=== PATIENT | male | born 1970 | race Caucasian/White ===

== ENCOUNTER 2017-09-21 14:08 | Inpatient (IN) | payer BC ==
[~2017-09-21] VITALS: Ht 188 cm; Wt 101.8 kg
[2017-09-21] VITALS (9 sets, daily range): BP systolic 138–163; BP diastolic 84–91; PULSE 81–98; TEMP 36–36.9; O2SAT 95–98; Ht 188 cm; Wt 101.8 kg
--- NOTE | 2017-09-21 14:50 | DIAGNOSTIC IMAGING REPORT ---
SINGLE VIEW CHEST CLINICAL HISTORY: Atypical chest pain. FINDINGS: 2 AP, portable, upright chest radiographs are obtained. No prior studies are available for comparison at the time of dictation. The examination is degraded by portable technique and patient rotation. The cardiomediastinal silhouette is unremarkable. The lungs and pleural spaces are clear. No pneumothorax is seen. The bony thorax is grossly intact. IMPRESSION: No active disease in the chest. Electronically signed by: Blake Lai M.D. 09/21/2017 2:49 PM Dictated Date/Time: 09/21/2017 2:48 PM
[2017-09-21 15:01] LABS: BASO % 0.3 %; BASO ABS # 0.03 K/uL (0-0.2); EOS % 2.1 %; EOS ABS # 0.24 K/uL (0-0.5); HEMATOCRIT 41.1 % (42-52); HEMOGLOBIN 14.1 g/dL (14.0-18.0); IG# 0.04 K/uL (0.00-0.02); LYMPH % 16.1 %; LYMPH ABS # 1.83 K/uL (1.2-3.4); MEAN CELL VOLUME 88.2 fL (80-100); MEAN CORPUSCULAR HEMOGLOBIN 30.3 pg (25-34); MEAN CORPUSCULAR HGB CONC 34.3 g/dl (32-36); MEAN PLATELET VOLUME 9.1 fL (7.4-10.4); MONO % 8.5 %; MONO ABS # 0.96 K/uL (0.11-0.59); NEUT % 72.6 %; NEUT ABS # 8.25 K/uL (1.4-6.5); PLATELET COUNT 418 K/uL (130-400); RED CELL DISTRIBUTION WIDTH CV 12.3 % (11.5-14.5); RED CELL DISTRIBUTION WIDTH SD 39.1 fL (36.4-46.3); WHITE BLOOD COUNT 11.35 K/uL (4.8-10.8)
[2017-09-21] MEDS ORDERED: ATOR-26 PO (15:11)
[2017-09-21] MEDS ORDERED: METO25TA56 PO (15:11)
[2017-09-21] MEDS ORDERED: ASPI81TA28 PO (15:11)
[2017-09-21] MEDS ORDERED: PRLSR20 PO (15:11)
[2017-09-21 15:23] LABS: CALCIUM 8.9 mg/dl (8.5-10.1); CREATININE 0.89 mg/dl (0.60-1.40); POTASSIUM 3.8 mmol/L (3.5-5.1)
[2017-09-21 15:26] LABS: PTT PATIENT 28.3 SECONDS (21.0-31.0)
[2017-09-21] MEDS ORDERED: NiCARDipine HCL INJ 2.5 MG/ML 10 ML AMP ONE (16:30)
[2017-09-21] MEDS ORDERED: HEPARIN SOD (PORCINE) 1000 UNIT/ML 10 ML VIAL ONE (16:31)
[2017-09-21] MEDS ORDERED: NITROGLYCERIN/D5W 100MCG/ML 20ML SYR ONE (16:31)
[2017-09-21] MEDS ORDERED: MIDAZOLAM HCL 1 MG/ML 2ML VIAL ONE ×3 (16:31→17:21)
--- NOTE | 2017-09-21 16:31 | CARDIOLOGY CONSULTATION ---
DATE OF CONSULTATION: 09/21/2017 REFERRING PHYSICIAN: Dr. Ashutosh Layton. REASON FOR CONSULTATION: Angina and abnormal stress testing. HISTORY OF PRESENT ILLNESS: Mr. Beth is a 47-year-old gentleman, presented to the [facility] for an outpatient exercise stress echocardiography. After about 4 minutes, the patient developed significant anginal symptoms with associated 3-[address] depression. His echocardiographic images demonstrated lateral ischemia. His chest pain persisted several minutes into recovery and he received sublingual nitroglycerin. He was brought to the Emergency Department for further evaluation. His EKG has returned to baseline. No significant ST depressions or chest discomfort at this time. No dysrhythmias on telemetry. Reports significant family history listed below. Risk factors include hypertension and dyslipidemia. His was present for interview. The patient denies orthopnea, PND, or lower extremity edema. Reports progressive anginal symptoms, which have been present since the summer. Most recently, the pattern has accelerated, now occurring with minimal activity. He is not able to complete his workout at the gym. REVIEW OF SYSTEMS: The pertinent positives noted above. A comprehensive 10-system review is otherwise negative. PAST MEDICAL HISTORY: 1. Dyslipidemia. 2. Type 2 non-STEMI in the setting of GI bleed/anemia. 3. Upper GI bleed secondary to H. pylori infection and peptic ulcer disease. PAST SURGICAL HISTORY: EGD and appendectomy. SOCIAL HISTORY: Occasional alcohol use. 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 He has smoked cigars occasionally. No cigarette use. He is and lives with his family. He has 2 adult daughters. FAMILY HISTORY: One brother at age 40 with myocardial infarction. Two other brothers with myocardial infarction and stenting in their 40s. Mother with coronary artery disease in her 60s. ALLERGIES: No known drug allergies. OUTPATIENT MEDICATIONS: 1. Omeprazole 20 mg twice daily. 2. Atorvastatin 80 mg daily. 3. Pyridium 3 times daily as needed for pain. 4. Aspirin 81 mg daily. 5. Metoprolol tartrate 25 mg twice daily. LABORATORY DATA: INR is 1.0. Sodium 136, potassium 3.8, chloride 105, CO2 is 27, BUN is 14, and creatinine 0.89. White blood cell count 11.35, hemoglobin is 14.1, and platelet count is 418. Chest x-ray on admission: No active disease in the chest. PHYSICAL EXAMINATION: VITAL SIGNS: Temperature is 36.9 degrees centigrade, pulse 88 beats per minute and regular, respiratory rate is 20 breaths per minute, blood pressure is 173/89, and SaO2 is 98% on room air. GENERAL: NAD, awake, alert and oriented x3. HEENT: Mucous membranes moist. No scleral icterus. Conjunctivae pink. NECK: Supple without JVD or HJR. No carotid bruit. HEART: Regular with a normal S1 and S2. There is no murmur, rub, or gallop. LUNGS: Clear without rales, rhonchi or wheeze. ABDOMEN: Soft and nontender. No rebound or guarding. Normal bowel sounds. EXTREMITIES: Warm and dry. There is no clubbing, cyanosis, or edema. There is a normal Barbeau test in the right upper extremity. His right femoral pulse is palpable. His posterior tibial and dorsalis pedis pulses are normal bilaterally. NEUROLOGIC: Demonstrates no focal deficit. FINAL IMPRESSION: 1. Unstable angina with abnormal exercise stress echocardiography, suggestive of lateral ischemia at low workload. 2. Significant family history of premature coronary artery disease as detailed above. 3. Dyslipidemia. 4. Hypertension -- BP elevated in the ED, likely situational. 5. History of peptic ulcer disease, H. pylori infection status post treatment without recurrence over the past 2 years. 6. Occasional tobacco use. PLAN AND RECOMMENDATIONS: Results of exercise stress echocardiography were discussed with the patient and his . Due to the accelerated nature of his symptoms representing crescendo angina, I have recommended cardiac catheterization with percutaneous intervention if indicated. The risks, benefits and alternatives of the procedure were discussed in depth with the patient. He is agreeable with the procedure at [facility] with percutaneous intervention if indicated. He will continue aspirin, statin, and beta bentley therapy at this time. We will consider adding ANGELICA inhibitor if blood pressure will tolerate prior to discharge. Further recommendations pending result of catheterization.
[2017-09-21] MEDS ORDERED: FENTANYL CITRATE INJ 50 MCG/1 ML 2 ML VIAL ONE ×2 (16:32→17:21)
[2017-09-21] MEDS ORDERED: ACETAMINOPHEN 325 MG TAB PO PRN (16:45)
[2017-09-21] MEDS ORDERED: ONDANSETRON INJ 2 MG/ML 2 ML VIAL IV PRN (16:45)
[2017-09-21] MEDS ORDERED: MAGNESIUM HYDROXIDE SUSP 30 ML UDC PO PRN (16:45)
[2017-09-21] MEDS ORDERED: ALUMINUM/MAGNESIUM/SIMETH (MAALOX MAX) 30 ML UDC PO PRN (16:45)
--- NOTE | 2017-09-21 16:46 | History and Physical ---
History & Physical Date & Time of Service: Sep 21, 2017 at 16:41 Chief Complaint: Chest Pain Primary Care Physician: No Doctor, Assigned History of Present Illness Source: patient, family, clinic records This is a 47 year old male with a PMH of gastric ulcer bleeding s/p multiple transfusions and endoclip x2, hx. of NSTEMI secondary to GI bleeding/anemia - presents for abnormal stress echo. Had chest pain with exertion; went for a stress echo as an outpatient. Found to have a positive test with chest pain and some T wave changes. Currently doing fine with no symptoms at rest. Had an NSTEMI in 2014 because of anemia and was placed on aspirin, metoprolol, statin at that time which he continues to take. Past Medical/Surgical History Medical Problems: (1) GI bleed Status: Resolved (2) Hypertension Status: Chronic (3) NSTEMI (non-ST elevated myocardial infarction) Status: Resolved Family History Heart disease Social History Smoking Status: Former Smoker Allergies Coded Allergies: No Known Allergies (Unverified , 09/21/17) Home Medications Scheduled Aspirin (Aspirin Ec), 81 MG PO DAILY Atorvastatin (Lipitor), 80 MG PO DAILY Metoprolol Tartrate (Lopressor) (Lopressor), 25 MG PO BID Omeprazole (Prilosec), 2 CAP PO BID Review of Systems Constitutional: No fever, No chills Respiratory: No cough, No sputum, No wheezing, No shortness of breath, No dyspnea on exertion, No dyspnea at rest, No hemoptysis Cardiovascular: + chest pain Abdomen: No pain, No nausea, No vomiting, No diarrhea, No constipation Musculoskeletal: No joint pain, No muscle pain Genitourinary - Male: No hematuria, No dysuria, No urinary frequency, No urinary urgency Neurologic: No numbness/tingling, No vertigo, No balance problems Psychiatric: No depression symptoms, No anxiety, No insomnia Endocrine: No fatigue Hematologic / Lymphatic: No abnormal bleeding/bruising Integumentary: No rash Allergic / Immunologic: No environmental allergies, No seasonal allergies Physical Exam Vital Signs Date Time Temp Pulse Resp B/P (MAP) Pulse Ox O2 Delivery O2 Flow Rate FiO2 09/21/17 16:17 90 20 167/92 97 09/21/17 14:23 98 Room Air 09/21/17 14:23 36.9 88 20 173/89 99 Room Air 09/21/17 14:19 78 General Appearance: no apparent distress Head: normocephalic, atraumatic Eyes: normal inspection ENT: hearing grossly normal Neck: supple Respiratory/Chest: chest non-tender, lungs clear, normal breath sounds, no respiratory distress, no accessory muscle use Cardiovascular: regular rate, rhythm, no edema, no gallop, no JVD, no murmur, normal peripheral pulses Abdomen/GI: normal bowel sounds, non tender, soft Back: normal inspection, no muscle spasm Extremities/Musculoskelatal: normal capillary refill, no pedal edema Neurologic/Psych: hose stripper II-XII nml as tested, no motor/sensory deficits, alert, normal mood/affect, oriented x 3 Skin: normal color Lymphatic: no adenopathy Diagnostics Laboratory Results Results Past 24 Hours Test 09/21/17 14:20 09/21/17 15:09 Range/Units White Blood Count 11.35 4.8-10.8 K/uL Red Blood Count 4.66 4.7-6.1 M/uL Hemoglobin 14.1 14.0-18.0 g/dL Hematocrit 41.1 42-52 % Mean Corpuscular Volume 88.2 80-100 fL Mean Corpuscular Hemoglobin 30.3 25-34 pg Mean Corpuscular Hemoglobin Concent 34.3 32-36 g/dl Platelet Count 418 130-400 K/uL Mean Platelet Volume 9.1 7.4-10.4 fL Neutrophils (%) (Auto) 72.6 % Lymphocytes (%) (Auto) 16.1 % Monocytes (%) (Auto) 8.5 % Eosinophils (%) (Auto) 2.1 % Basophils (%) (Auto) 0.3 % Neutrophils # (Auto) 8.25 1.4-6.5 K/uL Lymphocytes # (Auto) 1.83 1.2-3.4 K/uL Monocytes # (Auto) 0.96 0.11-0.59 K/uL Eosinophils # (Auto) 0.24 0-0.5 K/uL Basophils # (Auto) 0.03 0-0.2 K/uL RDW Standard Deviation 39.1 36.4-46.3 fL RDW Coefficient of Variation 12.3 11.5-14.5 % Immature Granulocyte % (Auto) 0.4 % Immature Granulocyte # (Auto) 0.04 0.00-0.02 K/uL Prothrombin Time 10.6 9.0-12.0 SECONDS Prothromb Time International Ratio 1.0 0.9-1.1 Activated Partial Thromboplast Time 28.3 21.0-31.0 SECONDS Partial Thromboplastin Ratio 1.1 Sodium Level 136 136-145 mmol/L Potassium Level 3.8 3.5-5.1 mmol/L Chloride Level 105 98-107 mmol/L Carbon Dioxide Level 27 21-32 mmol/L Anion Gap 4.0 3-11 mmol/L Blood Urea Nitrogen 14 7-18 mg/dl Creatinine 0.89 0.60-1.40 mg/dl Est Creatinine Clear Calc Drug Dose 119.3 ml/min Estimated GFR () 118.0 Estimated GFR (Non- 101.8 BUN/Creatinine Ratio 15.4 10-20 Random Glucose 98 70-99 mg/dl Calcium Level 8.9 8.5-10.1 mg/dl Bedside Troponin I < 0.030 0-0.045 ng/ml Diagnostic Radiology SINGLE VIEW CHEST CLINICAL HISTORY: Atypical chest pain. FINDINGS: 2 AP, portable, upright chest radiographs are obtained. No prior studies are available for comparison at the time of dictation. The examination is degraded by portable technique and patient rotation. The cardiomediastinal silhouette is unremarkable. The lungs and pleural spaces are clear. No pneumothorax is seen. The bony thorax is grossly intact. IMPRESSION: No active disease in the chest. EKG Normal sinus rhythm Normal ECG Normal EKG Impression Assessment and Plan This is a 47 year old male with a PMH of gastric ulcer bleeding s/p multiple transfusions and endoclip x2, hx. of NSTEMI secondary to GI bleeding/anemia - presents for abnormal stress echo. Abnormal Stress Test Hx. of NSTEMI plan for a cardiac cath appreciate cardiology input for now, continue aspirin, b-bentley, statin resting EKG with no ST-T wave changes no symptoms at rest Hx. of Gastric Ulcer Bleeding Hgb is stable no bleeding noted by patient continue Protonix DVT ppx Lovenox FULL CODE VTE Prophylaxis VTE Risk Assessment Done? Y/N: Yes Risk Level: Moderate
--- NOTE | 2017-09-21 17:23 | Pre Sedation Assessment ---
Pre Sedation Assessment General Date of Sedation: Sep 21, 2017. Vital Signs Past 12 Hours Date Time Temp Pulse Resp B/P (MAP) Pulse Ox O2 Delivery O2 Flow Rate FiO2 09/21/17 14:23 98 Room Air 09/21/17 14:23 36.9 88 20 173/89 99 Room Air 09/21/17 14:19 78 Review Cardiovascular: regular rate, rhythm, no edema, no gallop Lungs: chest non-tender, lungs clear, normal breath sounds Pre-Sedation Airway Assessment Smoking Status: Former Smoker Hx of Sleep Apnea: No Short Thick Neck: No Thyro-mental Distance: > 3 Finger Breadths Oral Cavity: WNL Mallampati Classification: Class I ASA Classification: Class I NPO Status Date of Last Intake of Fluids: Sep 21, 2017 Time of Last Intake of Fluids: 0800 Date of Last Intake of Solids: Sep 20, 2017 Time of Last Intake of Solids: 2000 Procedure Planning Contraindications for Sedation: None Current Medications Reviewed: Yes Notes The planned sedation has been discussed with the patient. Informed Consent was obtained. I have identified the patient, determined the appropriateness of sedation and have assessed the patient immediately prior to the procedure. All medicine(s) and interventions are by my order.
--- NOTE | 2017-09-21 17:36 | EMERGENCY ROOM VISIT NOTE ---
History Report prepared by Mirzaibdeanne: Elin Blackwell Under the Supervision of: Dr. Cornel Vizcaino M.D. First contact with patient: 14:29 Chief Complaint: CHEST PAIN Stated Complaint: CHEST PAIN Nursing Triage Summary: pt brought ALS from [facility] for chest pain during stress test, pt reports exertional chest pain x 1 month. Pain relieved after 1 nitro tablet and 4 baby aspirin given at [facility], pt denies pain for EMS or at present. Ischemic changes reported on EKG during stress test, back to NSR at this time. Pt has hx of NSTEMI and GI bleed in 2015. History of Present Illness The patient is a 47 year old male who presents to the Emergency Room with complaints of an episode of chest pain occurring an hour ago at 1 PM. The patient was having a stress test and he started to have chest pain and they saw some changes on his EKG. He states when he had the chest pain is was sharp, but he denies having any sweating during the episode. He is unsure if he had shortness of breath. The patient was given nitroglycerin and aspirin and it went away. Presently, the patient denies any chest pain. He states he has had chest pain when he exercised over the past month. Even climbing up a hill would make him develop chest pain. The patient has a history of a GI bleed and NSTEMI in 2015. He also has a history of hypertension. The patient reports his brother at the age of 40 from heart disease. He notes having flu like symptoms over Adelita but he denies any more recent sickness. Source of History: patient Onset: an hour ago Position: chest Symptom Intensity: moderate Quality: sharp Timing: other (episode) Modifying Factors (Relieving): other (Nitroglycerin) Associated Symptoms: + chest pain, No diaphoresis Review of Systems See HPI for pertinent positives & negatives. A total of 10 systems reviewed and were otherwise negative. Past Medical & Surgical Medical Problems: (1) Abnormal stress echo (2) GI bleed (3) Hypertension (4) NSTEMI (non-ST elevated myocardial infarction) Family History Heart disease Social History Smoking Status: Former Smoker Marital Status: Housing Status: lives with significant other Occupation Status: employed Current/Historical Medications Scheduled Aspirin (Aspirin Ec), 81 MG PO DAILY Atorvastatin (Lipitor), 80 MG PO DAILY Metoprolol Tartrate (Lopressor) (Lopressor), 25 MG PO BID Omeprazole (Prilosec), 2 CAP PO BID Allergies Coded Allergies: No Known Allergies (Unverified , 09/21/17) Physical Exam Vital Signs Date Time Temp Pulse Resp B/P (MAP) Pulse Ox O2 Delivery O2 Flow Rate FiO2 09/21/17 16:17 90 20 167/92 97 09/21/17 14:23 98 Room Air 09/21/17 14:23 36.9 88 20 173/89 99 Room Air 09/21/17 14:19 78 Physical Exam Constitutional: Vital signs reviewed. Eyes: Pupils are equal round reactive to light. Conjunctiva are noninjected. ENT: Pharynx is clear without erythema or exudate. Mucous membranes are moist. Neck supple without meningeal signs. Respiratory: Clear to auscultation bilaterally. Breath sounds are equal bilaterally. Cardiovascular: Regular rate and rhythm. No rubs or gallops. GI: Soft, nondistended and nontender. Bowel sounds are present. Musculoskeletal: No peripheral edema. No lower extremity tenderness. Integumentary: No cyanosis. Neurological: The patient is awake and alert. No focal deficits. Psychiatric: Normal affect. Medical Decision & Procedures ER Provider Diagnostic Interpretation: Radiology results as stated below per my review and the radiologist's interpretation: SINGLE VIEW CHEST FINDINGS: 2 AP, portable, upright chest radiographs are obtained. No prior studies are available for comparison at the time of dictation. The examination is degraded by portable technique and patient rotation. The cardiomediastinal silhouette is unremarkable. The lungs and pleural spaces are clear. No pneumothorax is seen. The bony thorax is grossly intact. IMPRESSION: No active disease in the chest. Electronically signed by: Blake Lai M.D. Laboratory Results 09/21/17 14:20 Red Blood Count 4.66, Mean Corpuscular Volume 88.2, Mean Corpuscular Hemoglobin 30.3, Mean Corpuscular Hemoglobin Concent 34.3, Mean Platelet Volume 9.1, Neutrophils (%) (Auto) 72.6, Lymphocytes (%) (Auto) 16.1, Monocytes (%) (Auto) 8.5, Eosinophils (%) (Auto) 2.1, Basophils (%) (Auto) 0.3, Neutrophils # (Auto) 8.25, Lymphocytes # (Auto) 1.83, Monocytes # (Auto) 0.96, Eosinophils # (Auto) 0.24, Basophils # (Auto) 0.03 09/21/17 14:20 Test 09/21/17 14:20 09/21/17 15:09 White Blood Count 11.35 K/uL (4.8-10.8) Red Blood Count 4.66 M/uL (4.7-6.1) Hemoglobin 14.1 g/dL (14.0-18.0) Hematocrit 41.1 % (42-52) Mean Corpuscular Volume 88.2 fL (80-100) Mean Corpuscular Hemoglobin 30.3 pg (25-34) Mean Corpuscular Hemoglobin Concent 34.3 g/dl (32-36) Platelet Count 418 K/uL (130-400) Mean Platelet Volume 9.1 fL (7.4-10.4) Neutrophils (%) (Auto) 72.6 % Lymphocytes (%) (Auto) 16.1 % Monocytes (%) (Auto) 8.5 % Eosinophils (%) (Auto) 2.1 % Basophils (%) (Auto) 0.3 % Neutrophils # (Auto) 8.25 K/uL (1.4-6.5) Lymphocytes # (Auto) 1.83 K/uL (1.2-3.4) Monocytes # (Auto) 0.96 K/uL (0.11-0.59) Eosinophils # (Auto) 0.24 K/uL (0-0.5) Basophils # (Auto) 0.03 K/uL (0-0.2) RDW Standard Deviation 39.1 fL (36.4-46.3) RDW Coefficient of Variation 12.3 % (11.5-14.5) Immature Granulocyte % (Auto) 0.4 % Immature Granulocyte # (Auto) 0.04 K/uL (0.00-0.02) Prothrombin Time 10.6 SECONDS (9.0-12.0) Prothromb Time International Ratio 1.0 (0.9-1.1) Activated Partial Thromboplast Time 28.3 SECONDS (21.0-31.0) Partial Thromboplastin Ratio 1.1 Anion Gap 4.0 mmol/L (3-11) Est Creatinine Clear Calc Drug Dose 119.3 ml/min Estimated GFR () 118.0 Estimated GFR (Non- 101.8 BUN/Creatinine Ratio 15.4 (10-20) Calcium Level 8.9 mg/dl (8.5-10.1) Bedside Troponin I < 0.030 ng/ml (0-0.045) Laboratory results as reviewed by me. ECG Indication: chest pain Rate (beats per minute): 83 Rhythm: normal sinus Findings: no acute ischemic change, no ectopy ED Course 1432: The patient was evaluated in room C6. A complete history and physical exam was performed. 1525: I spoke with Dr. Lay-Cardiology. We discussed the patient and his results. He will come evaluate the patient. 1528: I updated the patient on his test results. Dr. Tran is in the room with the patient. 1533: I spoke with Dr. Layton of [facility]. We discussed the patient and his results. The patient will be further evaluated by him. Medical Decision This is a 47-year-old male who presents with chest pain. Differential diagnosis includes FL, unstable angina, pleurisy, costochondritis, GERD. I did perform a limited focused review of portions of the patient's old chart on the electronic medical record. The patient has had no recent pertinent visits to this hospital. Reviewed EKG from stress test: it has ST elevation in aVR and depression in v3- v6 and inferior leads I did evaluate the patient as noted above. He is presenting with exertional chest pain for the past month. He had a stress test today in which she develop chest pain and had significant EKG changes during this episode of chest pain. This chest pain was relieved with nitroglycerin. He was given aspirin prior to arrival. The patient was placed on a continuous patient monitor. I did order and personally review the patient's 12-lead EKG and chest x-ray as described above. I did order and review the patient's blood work as noted in the electronic medical record. Troponin is negative. I did reevaluate the patient. He is not having any chest pain at this time. I did discuss case with Dr. Lay of cardiology. He did assess the patient here and is planning on taking him to the catheterization lab this afternoon. I did discuss case with the hospitalist. Medication Reconcilliation Current Medication List: was personally reviewed by me Blood Pressure Screening Patient's blood pressure: Elevated blood pressure Blood pressure disposition: Referred to PCP Consults Time Called: 152 Consulting Physician: Dr. Lay-Cardiology Returned Call: [address] SchneiderCardiology. We discussed the patient and his results. He will come evaluate the patient. Additional Consults: Time Called: 1528 Consulted Physician: Dr. Santana Returned Call: [phone] Additional Comments: I spoke with Dr. Layton of [facility]. We discussed the patient and his results. The patient will be further evaluated by him. Impression Primary Impression: Acute coronary syndrome Scribe Attestation The scribe's documentation has been prepared under my direct and personally reviewed by me in its entirety. I confirm that the note above accurately reflects all work, treatment, procedures, and medical decision making performed by me. Departure Information Dispostion Being Evaluated By Hospitalist Patient Instructions My [facility]
--- NOTE | 2017-09-21 18:00 | Cardiac Catheterization ---
Procedure Note Procedure Date Sep 21, 2017. Pre-Procedure Diagnosis Angina, Positive Stress Test AUC Score 8 Post-Procedure Diagnosis Severe CAD Procedure(s) Performed Coronary Angiography, Left Heart Cath Box Nailer Dr. 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 90% proximal RCA Hemodynamics Rest Ao: 120/70/92 Final Ao: 140/74/103 LV: 143/-4/9 Recommendations PCI without planned CABG Specimens None Radiation Exposure (mGy) 1434 Contrast (mls) 50 Anesthesia Moderate sedation. Start 1650. End 1713. Procedural Complication(s) None Disposition Patient remained in label maker for PCI to diagonal ACC Data Cardiac Status Clinical evaluation leading to the procedure CAD Presntation: Unstable angina, Positive Stress Test Anginal Classification: CCS III Heart Failure: No Cardiogenic Shock w/in 24Hrs: No Cardiac Arrest w/in 24Hrs: No Imaging studies past 6 months: No Stress studies past 6 months: Yes Stress Echocardiogram: Yes - Positive, Risk/Extent of Ischemia (High) Coronary Anatomy Dominant: Right Left Main (% Stenosis): Ostial (30% taper), Distal (20-30%) LAD (% Stenosis): Mid (40% at origin of diagonal branch vessel), Distal (20%) D1 (% Stenosis): Proximal (99%) Circumflex (% Stenosis): Ostial (30%), Proximal (50% proximal to origin of OM1) , Mid OM1 (% Stenosis): Proximal (10%), Mid, Distal (10%) RCA (% Stenosis): Proximal (90%), Mid (30%) R PDA (% Stenosis): Proximal (30% diffuse), Mid (40% ), Distal (30% diffuse) R PL1 (% Stenosis): Normal R PL2 (% Stenosis): Normal Diagnostic Status: Urgent Closure Device Percutaneous Entry Location: Radial Closure Device: Radial Band Intraprocedure Events Significant Dissection: No Perforation: No
[2017-09-21] MEDS ORDERED: CLOPIDOGREL BISULFATE 300 MG TAB PO ONE (18:23)
--- NOTE | 2017-09-21 18:44 | Post Sedation Assessment ---
Post Sedation Assessment General Date of Sedation Sep 21, 2017. Vital Signs: Vital Signs Past 12 Hours Date Time Temp Pulse Resp B/P (MAP) Pulse Ox O2 Delivery O2 Flow Rate FiO2 09/21/17 18:30 92 16 140/82 (101) 98 Room Air 09/21/17 18:20 93 16 148/84 (105) 98 Room Air 09/21/17 16:17 90 20 167/92 97 09/21/17 14:23 98 Room Air 09/21/17 14:23 36.9 88 20 173/89 99 Room Air 09/21/17 14:19 78 Post Procedure Recovery Score Activity: (2) Moves 4 extremities * Respiration: (2) Deep breath/cough Circulation: (2) +/-20% PreAnes Value Consciousness: (2) Fully Awake Oxygen Saturation: (2) > 92% On Room Air Post Anesthesia Score: 10 Discharge Sedation Level of Care: Fast Track Phase II Post Sedation Plan On clinical assessment, the patient appears to have tolerated the sedation without complications. Patient is recovering as anticipated. Patient will continue to be monitored by nursing and may be discharged when sedation discharge criteria are met per below protocol. Upon Completions of procedure and additional 15 minutes continue every 5 minute vital signs and the P.A.R. score; then discharge to a Phase I or Fast Track to Phase II per the following guidelines: * Discharge Patient to appropriate Phase II area if PAR is 8 or greater or return to pre- procedure baseline. The post - procedure orders will be as directed. * If PAR score is less than 8 or not return to pre-procedure baseline then patient will follow Phase I monitoring till PAR is reached for Phase II. The Phase I may be done in procedure room or may call to secure a Phase I area. * If naloxone or flumazenil are used for reversal, hold in Phase I for an additional 60 -120 minutes before discharge to Phase II. Please call the Sedation Physician to re-evaluate and complete post-note for discharge to Phase II area. Do NOT discharge from procedure sedation or Phase 1 until post- sedation evaluation note is complete by procedure /sedation MD Sedation Discharge Instructions to be given to the patient at discharge to home.
--- NOTE | 2017-09-21 18:53 | Cardiac Catheterization ---
Procedure Note Procedure Date Sep 21, 2017. 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 [employer](s) Uriah Estimated Blood Loss 20 Medication(s) Fentanyl, Heparin, Nicardipine, Nitroglycerin, Versed Summary of Findings Indication: Positive stress test Access: 6Fr right radial artery Catheters: JR4 guide; EBU 3.5 guide Findings: -- PCI RCA-- Antithrombotic therapy: Heparin, Clopidogrel Procedure: RCA cannulated with JR4 guide BMW wire passed across lesion into distal vessel Proximal RCA lesion predilated with 3.0 compliant balloon Dilated lesion stented with 4.5 x 15 Ovi NAHUN Stent post-dilated with 4.5 noncompliant balloon Post stenting ostial stenosis more prominent. Catheter dampening with engagement and ECG changes. Decision made to stent ostium. 4.0 x 15 Ovi NAHUN placed to ostium, overlapped with prior stent. Stents post-dilated with 4.5 NC IC vasodilators administered for spasm Post procedure GUSTAVO 3 flow, stent well expanded with minimal residual stenosis and no apparent cardiac complications. -- PCI of 1st Diagonal-- Antithrombotic therapy: Heparin, Clopidogrel Procedure: LM cannulated with EBU 3.5 guide BMW wire passed across lesion into distal vessel Diagonal lesion predilated with 2.0 compliant balloon Dilated lesion stented with 2.5 x 15 [place] NAHUN Stent post-dilated with stent balloon. IC vasodilators administered for spasm Post procedure GUSTAVO 3 flow, stent well expanded with minimal residual stenosis and no apparent cardiac complications. Arterial Closure: TR band Summary: 1. Successful PCI of ostial/proximal RCA with 2 overlapping NAHUN (4.0 x 15, 4.5 x 15 [place]). 2. Successful PCI of proximal 1st diagonal with one NAHUN (2.5 x 15 Ovi). 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 Continue dual-antiplatelet therapy for at least 6 months Continue statin, ASCVD risk factor modification Consult cardiac Rehab Hemodynamics Rest Ao: 120/70/92 Final Ao: 117/78/97 LV: 143/9 Recommendations PCI without planned CABG Specimens None Radiation Exposure (mGy) 4599 Contrast (mls) 250 Fluids (cc crystalloids) 178 Drains None Anesthesia Moderate Procedural Complication(s) None Disposition PCU ACC Data Cardiac Status Clinical evaluation leading to the procedure CAD Presntation: Positive Stress Test Anginal Classification: CCS III Heart Failure: No, NYHA Class: CCS I Cardiogenic Shock w/in 24Hrs: No Cardiac Arrest w/in 24Hrs: No Imaging studies past 6 months: Yes Stress studies past 6 months: Yes Stress Echocardiogram: Yes - Positive, Risk/Extent of Ischemia (High) Diagnostic Physician's Name: Cornel Lay DO Status: Urgent Closure Device Percutaneous Entry Location: Radial Closure Device: Angio-Seal Recommendations: PCI without planned CABG PCI Indication: + Stress Test Lesion Segment Name: Proximal RCA Culprit Artery: Yes Stenosis Prior to Rx (%): 90 Chronic Total Occlusion: No IVUS: No FFR: No Pre-Procedure GUSTAVO Flow: 3 Previously Treated Lesion: No Lesion Complexity: Non-High/Non-C Lesion Length (mm): 20 Thrombus Present: No Bifurcation Lesion: No Guidewire Across Lesion: Yes Guidewire: Stenosis Post-Procedure (%): 0 Post-Procedure GUSTAVO Flow: 3 Device(s) Deployed: Yes Lesion #2 Segment Name: Diagonal Culprit Artery: Yes Stenosis Prior to Rx (%): 90 Chronic Total Occlusion: No IVUS: No FFR: No Pre-Procedure GUSTAVO Flow: 3 Previously Treated Lesion: No Lesion Complexity: Non-High/Non-C Lesion Length (mm): 12 Thrombus Present: No Bifurcation Lesion: No Guidewire Across Lesion: Yes Intraprocedure Events Significant Dissection: No Perforation: No
[2017-09-21] MEDS ORDERED: SODIUM CHLORIDE 0.9% 1000ML 1,000 ML IV SCH (20:00)
[2017-09-21] MEDS ORDERED: ENOXAPARIN 40 MG/0.4 ML SYR SC SCH (21:00)
[2017-09-21] MEDS: PANTOprazole SOD 40 MG TAB PO SCH (21:10)
[2017-09-21] MEDS: METOPROLOL TARTRATE 25 MG TAB PO SCH (21:10)
[2017-09-22 00:01] VITALS: BP 134/83; PULSE 76; TEMP 36.6; O2SAT 95
[2017-09-22 00:32] VITALS: BP 142/87; PULSE 77; TEMP 36.9; O2SAT 97
[2017-09-22 01:25] VITALS: BP 150/86; PULSE 83; TEMP 36.8; O2SAT 96
[2017-09-22] MEDS ORDERED: SODIUM CHLORIDE 0.9% 1000ML 1,000 ML IV SCH (03:29)
[2017-09-22 05:24] VITALS: BP 151/96; PULSE 82; TEMP 36.6; O2SAT 96
[2017-09-22 07:00] VITALS: BP 156/89; PULSE 82; TEMP 36.8; O2SAT 98
[2017-09-22 07:08] LABS: BASO % 0.3 %; BASO ABS # 0.03 K/uL (0-0.2); EOS % 3.5 %; HEMATOCRIT 37.9 % (42-52); HEMOGLOBIN 12.8 g/dL (14.0-18.0); IG# 0.03 K/uL (0.00-0.02); LYMPH % 11.6 %; LYMPH ABS # 1.34 K/uL (1.2-3.4); MEAN CELL VOLUME 88.3 fL (80-100); MEAN CORPUSCULAR HEMOGLOBIN 29.8 pg (25-34); MEAN CORPUSCULAR HGB CONC 33.8 g/dl (32-36); MEAN PLATELET VOLUME 8.6 fL (7.4-10.4); MONO % 10.4 %; MONO ABS # 1.21 K/uL (0.11-0.59); NEUT % 73.9 %; NEUT ABS # 8.57 K/uL (1.4-6.5); PLATELET COUNT 344 K/uL (130-400); RED CELL DISTRIBUTION WIDTH CV 12.4 % (11.5-14.5); RED CELL DISTRIBUTION WIDTH SD 39.3 fL (36.4-46.3); WHITE BLOOD COUNT 11.58 K/uL (4.8-10.8)
[2017-09-22 07:34] LABS: CALCIUM 8.3 mg/dl (8.5-10.1); CREATININE 0.77 mg/dl (0.60-1.40)
[2017-09-22] MEDS ORDERED: ASPIRIN 81 MG ECTAB PO SCH (09:00)
[2017-09-22] MEDS ORDERED: CLOPIDOGREL BISULFATE 75 MG TAB PO SCH (09:00)
[2017-09-22] MEDS ORDERED: ATORVASTATIN 40 MG TAB PO SCH (09:00)
[2017-09-22] MEDS: METOPROLOL TARTRATE 25 MG TAB PO SCH (09:20)
[2017-09-22] MEDS ORDERED: LISINOPRIL 5 MG TAB PO ONE (10:00)
--- NOTE | 2017-09-22 10:02 | CARDIOLOGY PROGRESS NOTE ---
DATE: 09/22/2017 DATE: 09/22/2017 The patient seen and examined. Chart, medications, telemetry reviewed. SUBJECTIVE: The patient feels well this morning. Notes no complaints, has been ambulatory in room. Notes no dizziness, lightheadedness, syncope or near syncope. Notes no chest pain or discomfort. Access site right radial wrist is healed well. Notes no bleeding difficulties. OBJECTIVE: VITAL SIGNS: Telemetry reveals no arrhythmias. Heart rate is 82. Blood pressure is 151/96. HEAD, EYES, EARS, NOSE, AND THROAT: Normocephalic, atraumatic. Nares without discharge. Throat was clear. NECK: Supple without thyromegaly, lymphadenopathy, JVD or bruit. LUNGS: Clear to auscultation. CARDIOVASCULAR: Regular with normal S1, S2. There is no murmur, gallop or rub. ABDOMEN: Soft, nontender. EXTREMITIES: Without cyanosis or clubbing. Right wrist access site is healed well with bandage in place. LABORATORY DATA: White cell count is 11.5, hemoglobin is 12.8, platelet count 344. Sodium is 138, potassium is 4.0, chloride is 106, BUN 11, creatinine 0.77. EKG this morning reveals sinus rhythm, normal tracing. IMPRESSION: A 47-year-old male premature coronary disease presented with crescendo angina identified 2-vessel coronary artery disease with coronary intervention on 09/21/2017 receiving drug-eluting stents to the proximal right coronary artery and first diagonal branches with successful result. RECOMMENDATIONS: The patient is stable for discharge home today. Plan dual antiplatelet minimum of 6 months, preferably 1 year uninterrupted. Continue full dose atorvastatin 80 mg per day. Continue dose of metoprolol. Add lisinopril 5 mg per day for blood pressure control and optimal medical regimen. We discussed potential of cardiac rehab, he wishes to defer at this point in time. Would recommend followup with cardiology in the next 3-4 weeks' time either through [facility] in [place] or through [facility].
[2017-09-22] MEDS: PANTOprazole SOD 40 MG TAB PO SCH (10:31)
[2017-09-22] MEDS ORDERED: LSN5 PO (12:15)
[2017-09-22] MEDS ORDERED: PLV75 PO (12:15)
--- NOTE | 2017-09-22 12:19 | Discharge Instructions ---
Discharge Instructions Date of Service Sep 22, 2017. Admission Reason for Admission: Abnormal Stress Echo Discharge Discharge Diagnosis / Problem: NSTEMI/UNSTABLE ANGINA /S/P STENT PLACEMENT Discharge Goals Goal(s): Decrease discomfort, Improve function, Improve disease control, Diagnostic testing, Therapeutic intervention Activity Recommendations Activity Limitations: as noted below Lifting Limitations: no more than 5 pounds ACTIVITY RECOMMENDATIONS: Excess manipulation of the wrist should be avoided for the next 24-48 hours. * No lifting over 2 pounds (approximately a 1/2 gallon of milk) with the utilized arm for 24 hours. * No strenuous activity such as bowling or tennis for 3 days. * Keep the site of the procedure covered with a bandage for 24 hours. *You may shower the day after the procedure. Do not take a tub bath or submerge the puncture site in water for the next 3 days. *Do not operate any motorized equipment for 3 days. SPECIAL CARE INSTRUCTIONS: The site may be slightly bruised and sore following your procedure. Should any of the following occur, contact the Dr. who performed your procedure. 1. Redness/inflammation, swelling, chills, or fever, or colored drainage at procedure site within 3-7 days after your procedure. 2. Coldness, discoloration, ongoing numbness, severe pain, or swelling. Expect mild tingling of hand and tenderness at the puncture site for up to three days. If this persists beyond three days, or other symptoms develop, notify the Dr. who performed your procedure. BLEEDING: If the procedure site on your wrist begins to bleed, do not panic 1. Place 1 or 2 fingers firmly just slightly above the insertion site to stop the bleeding. You may be able to feel your pulse as you hold pressure. 2. Lift your finger after 5 minutes to see if the bleeding has stopped. 3. Once the bleeding has stopped, gently wipe the wrist area clean with a bandage. * If the bleeding from your wrist does not stop after 10 minutes, or if there is a large amount of bleeding or spurting, call 911 (do not drive yourself to the hospital). SKIN IRRITATION: * You may experience some redness and/or swelling in the area where radiation was administered. If any skin irritation occurs, please contact your family physician. FOLLOW UP VISIT: Keep any scheduled doctor appointments. . Instructions / Follow-Up Instructions / Follow-Up Home Care: * Take your medications exactly as directed. Don't skip doses. * Remember that recovery after a heart attack takes time. Plan to rest for at lease 4-8 weeks while you recover. Then return to normal activity when your doctor says it's okay. * Ask your doctor about joining a heart rehabilitation program. * Tell your doctor if you are feeling depressed. Feelings of sadness are common after a heart attack, but it is important that you speak to someone if you are feeling overwhelmed by these feelings. * If you are having chest pain, call 911 for an ambulance. Do NOT drive yourself to the hospital. * Ask your family members to learn CPR. * Learn to take your own blood pressure and pulse. Keep a record of your results. Ask your doctor when you should seek emergency medical attention. He or she will tell you which blood pressure reading is dangerous. Lifestyle Changes: * Maintain a healthy weight. Get help to lose any extra pounds. * Cut back on salt. * Limit canned, dried, packaged, and fast foods. * Don't add salt to your food. * Season foods with herbs instead of salt when you cook. * Break the smoking habit. Enroll in a stop-smoking program to improve your chances of success. * Limit fatty foods. * Ask your doctor about having your lipid levels checked regularly. * Build up your activity according to your doctor's recommendation. * Ask your doctor when it's okay to resume sexual activity. * Tell your doctor about any erectile dysfunction (ED) medication you are taking. Some ED medications are not safe if you take certain heart medications. * Try to manage stress. Follow Up: It is important for you to keep your follow up appointments with your medical provider. HOSPITAL FOLLOW UP : 09/28/2017 8:30 AM Pool Richter MD [facility] CARDIOLOGY FOLLOW UP :DR PAREKH IN 3-4 WEEKS , OFFICE WILL CALL WITH APPOINTMENT IT IS VERY IMPORTANT TO TAKE ASPIRIN AND PLAVIX WITH ANY INTERRUPTION FOR AT LEAST 6-12 MONTHS HIGH RISK FOR CLOT IN STENT /STENT FAILURE WITH NOT TAKING THIS BOTH ON REGULAR BASIS PLEASE TAKE WITH FOOD TO PREVENT STOMACH IRRITATION PLEASE NOTIFY YOUR PHYSICIAN WITH ANY EVIDENCE OF DARK STOOL OR BLOOD IN STOOL YOU WILL BENEFIT WITH CARDIAC REHAB PROGRAMME -REFERRAL BEEN MADE PLEASE DISCUSS WITH YOUR CARDIOLOGY FOR RECOMMENDATION Current Hospital Diet Patient's current hospital diet: AHA Diet (Heart Healthy) Discharge Diet Recommended Diet: AHA Diet (Heart Healthy) Procedures Procedures Performed: Coronary Angiography, Left Heart Cath ON 09/21/17 FINDING : 95% diagonal stenosis. 90% proximal RCA 1. Successful PCI of ostial/proximal RCA with 2 overlapping NAHUN (4.0 x 15, 4.5 x 15 [place]). 2. Successful PCI of proximal 1st diagonal with one NAHUN (2.5 x 15 Ovi). Pending Studies Studies pending at discharge: no Work Instructions Return To Work: 3 days (on Sunday09/26/17 ) Medical Emergencies . Who to Call and When: Medical Emergencies: If at any time you feel your situation is an emergency, please call 911 immediately. Call 911 immediately or go to your nearest Emergency Room if you experience any of the following: Warning Signs and Symptoms of a Heart Attack * Chest pain that is not relieved by medication * Shortness of breath . Non-Emergent Contact Non-Emergency issues call your: Primary Care Provider . . "Provider Documentation" section prepared by Shagufta Chaparro. . AMI Core Measures Reason no ASA as I/P: Treatment provided - N/A Reason no ASA at D/C: Treatment provided - N/A Reason no statin as I/P: Treatment provided - N/A Reason no statin at D/C: Treatment provided - N/A VTE Core Measure Inpt VTE Proph given/why not?: Unfractionated heparin SQ
[2017-09-22] MEDS ORDERED: NITR0.4S UT (13:33)
--- NOTE | 2017-09-22 13:42 | Discharge Summary ---
Discharge Summary Date of Service Sep 22, 2017. Discharge Summary Admission Date: Sep 21, 2017 at 16:34 Discharge Date: Sep 22, 2017 Discharge Disposition: Home Principal Diagnosis: NSTEMI/UNSTABLE ANGINA /S/P STENT PLACEMENT Procedures: Procedures Performed: 09/21/17 Coronary Angiography, Left Heart Cath ON 09/21/17 FINDING : 95% diagonal stenosis. 90% proximal RCA 1. Successful PCI of ostial/proximal RCA with 2 overlapping NAHUN (4.0 x 15, 4.5 x 15 [place]). 2. Successful PCI of proximal 1st diagonal with one NAHUN (2.5 x 15 [place]). Consultations: [facility] Medication Reconciliation New Medications: Nitroglycerin (Nitrostat) 0.4 Mg Sub 0.4 MG UT PRN, #30 BTL Clopidogrel Bisulfate (Clopidogrel) 75 Mg Tab 75 MG PO QAM for 30 Days, #30 TAB 6 Refills take with full stomach Lisinopril (Lisinopril) 5 Mg Tab 5 MG PO QAM for 30 Days, #30 TAB 6 Refills Continued Medications: Aspirin (Aspirin Ec) 81 Mg Tab 81 MG PO DAILY Atorvastatin (Lipitor) 80 Mg Tab 80 MG PO DAILY, TAB Metoprolol Tartrate (Lopressor) (Lopressor) 25 Mg Tab 25 MG PO BID, TAB Omeprazole (Prilosec) 20 Mg Capcr 2 CAP PO BID, CAP Referrals At Discharge Follow up Referrals: [facility] [employer] Referral - Within 6 Weeks with Cornel Lay DO Physician Referral - 09/28/17 with Pool Richter M.D. Admission Information HPI (per Admitting provider): This is a 47 year old male with a PMH of gastric ulcer bleeding s/p multiple transfusions and endoclip x2, hx. of NSTEMI secondary to GI bleeding/anemia - presents for abnormal stress echo. Had chest pain with exertion; went for a stress echo as an outpatient. Found to have a positive test with chest pain and some T wave changes. Currently doing fine with no symptoms at rest. Had an NSTEMI in 2014 because of anemia and was placed on aspirin, metoprolol, statin at that time which he continues to take. Physical Exam (per Admitting): General Appearance: no apparent distress Head: normocephalic, atraumatic Eyes: normal inspection ENT: hearing grossly normal Neck: supple Respiratory/Chest: chest non-tender, lungs clear, normal breath sounds, no respiratory distress, no accessory muscle use Cardiovascular: regular rate, rhythm, no edema, no gallop, no JVD, no murmur , normal peripheral pulses Abdomen/GI: normal bowel sounds, non tender, soft Back: normal inspection, no muscle spasm Extremities/Musculoskelatal: normal capillary refill, no pedal edema Neurologic/Psych: concrete block layer II-XII nml as tested, no motor/sensory deficits, alert , normal mood/affect, oriented x 3 Skin: normal color Lymphatic: no adenopathy Hospital Course no complain of chest pain or SOB has walked on the hallway with out any JAFFE evaluated by Cardiology , right wrist Cath site -healing well stable to be discharged home today : PHYSICAL EXAM : GEN ; pleasant , no sign of distress HEENT: sclera non icteric, PERRLA/EOMI HT: regular S1/S2 , no JVD , no carotid Bruit , no lower ext edema LUNGS : CTA , no wheeze or rales ABDOMEN: soft, non tender , no organomegaly EXT: no rash or deformity NEURO ; AAO x3, no focal neurological deficit VITALS Date Time Temp Pulse Resp B/P (MAP) Pulse Ox O2 Delivery O2 Flow Rate FiO2 09/22/17 13:47 36.8 82 18 98 Room Air 09/22/17 12:00 Room Air 09/22/17 08:05 Room Air 09/22/17 07:00 36.8 82 18 156/89 (111) 98 09/22/17 05:24 36.6 82 17 151/96 (114) 96 Room Air 09/22/17 04:00 Room Air 09/22/17 01:25 36.8 83 14 150/86 (107) 96 Room Air 09/22/17 00:32 36.9 77 15 142/87 (105) 97 Room Air 09/22/17 00:01 36.6 76 18 134/83 (100) 95 Room Air 09/22/17 00:00 Room Air 09/21/17 21:30 83 18 146/85 (105) 95 UNSTABLE ANGINA /CAD : out pt cardiac stress test positive for stress induced ischemia Risk factors : prior hx of NSTEMI in 2014 , significant family hx of premature CAD Cardiac Cath on 09/21/17 : shows severe CAD with 95 % diagonal stenosis 90% Proximal RCA stenosis s/P PTCA with X2 drug eluting stent 1. Successful PCI of ostial/proximal RCA with 2 overlapping NAHUN (4.0 x 15, 4.5 x 15 [place]). 2. Successful PCI of proximal 1st diagonal with one NAHUN (2.5 x 15 [place]). pt recovered well no symptom of angina post procedure pt will be discharged home today will continue with Dual antiplatelet-Aspirin /Plavix for at least 6 months - ideally 12 months ( if not bleeding complication ) on High intensity statin tx -Lipitor 80 mg daily added low dose ACEI -Lisinopril 5 mg daily cont Beta [place] -Lopressor referral made for Cardiac rehab Follow up with Dr Parekh at [facility] cardiology clinic GERD : cont PPI FULL CODE DVT PROPHYLAXIS : sub q heparin DISPOSITION : stable to be discharge home today Total time spent on discharge = 40 MINS This includes examination of the patient, discharge planning, medication reconciliation, and communication with other providers. Discharge Instructions Discharge Instructions Date of Service Sep 22, 2017. Admission Reason for Admission: Abnormal Stress Echo Discharge Discharge Diagnosis / Problem: NSTEMI/UNSTABLE ANGINA /S/P STENT PLACEMENT Discharge Goals Goal(s): Decrease discomfort, Improve function, Improve disease control, Diagnostic testing, Therapeutic intervention Activity Recommendations Activity Limitations: as noted below Lifting Limitations: no more than 5 pounds ACTIVITY RECOMMENDATIONS: Excess manipulation of the wrist should be avoided for the next 24-48 hours. * No lifting over 2 pounds (approximately a 1/2 gallon of milk) with the utilized arm for 24 hours. * No strenuous activity such as bowling or tennis for 3 days. * Keep the site of the procedure covered with a bandage for 24 hours. *You may shower the day after the procedure. Do not take a tub bath or submerge the puncture site in water for the next 3 days. *Do not operate any motorized equipment for 3 days. SPECIAL CARE INSTRUCTIONS: The site may be slightly bruised and sore following your procedure. Should any of the following occur, contact the DrJoaquin who performed your procedure. 1. Redness/inflammation, swelling, chills, or fever, or colored drainage at procedure site within 3-7 days after your procedure. 2. Coldness, discoloration, ongoing numbness, severe pain, or swelling. Expect mild tingling of hand and tenderness at the puncture site for up to three days. If this persists beyond three days, or other symptoms develop, notify the Dr. who performed your procedure. BLEEDING: If the procedure site on your wrist begins to bleed, do not panic 1. Place 1 or 2 fingers firmly just slightly above the insertion site to stop the bleeding. You may be able to feel your pulse as you hold pressure. 2. Lift your finger after 5 minutes to see if the bleeding has stopped. 3. Once the bleeding has stopped, gently wipe the wrist area clean with a bandage. * If the bleeding from your wrist does not stop after 10 minutes, or if there is a large amount of bleeding or spurting, call 911 (do not drive yourself to the hospital). SKIN IRRITATION: * You may experience some redness and/or swelling in the area where radiation was administered. If any skin irritation occurs, please contact your family physician. FOLLOW UP VISIT: Keep any scheduled doctor appointments. . Instructions / Follow-Up Instructions / Follow-Up Home Care: * Take your medications exactly as directed. Don't skip doses. * Remember that recovery after a heart attack takes time. Plan to rest for at lease 4-8 weeks while you recover. Then return to normal activity when your doctor says it's okay. * Ask your doctor about joining a heart rehabilitation program. * Tell your doctor if you are feeling depressed. Feelings of sadness are common after a heart attack, but it is important that you speak to someone if you are feeling overwhelmed by these feelings. * If you are having chest pain, call 911 for an ambulance. Do NOT drive yourself to the hospital. * Ask your family members to learn CPR. * Learn to take your own blood pressure and pulse. Keep a record of your results. Ask your doctor when you should seek emergency medical attention. He or she will tell you which blood pressure reading is dangerous. Lifestyle Changes: * Maintain a healthy weight. Get help to lose any extra pounds. * Cut back on salt. * Limit canned, dried, packaged, and fast foods. * Don't add salt to your food. * Season foods with herbs instead of salt when you cook. * Break the smoking habit. Enroll in a stop-smoking program to improve your chances of success. * Limit fatty foods. * Ask your doctor about having your lipid levels checked regularly. * Build up your activity according to your doctor's recommendation. * Ask your doctor when it's okay to resume sexual activity. * Tell your doctor about any erectile dysfunction (ED) medication you are taking. Some ED medications are not safe if you take certain heart medications. * Try to manage stress. Follow Up: It is important for you to keep your follow up appointments with your medical provider. HOSPITAL FOLLOW UP : 09/28/2017 8:30 AM Pool Richter MD [facility] CARDIOLOGY FOLLOW UP :DR PAREKH IN 3-4 WEEKS , OFFICE WILL CALL WITH APPOINTMENT IT IS VERY IMPORTANT TO TAKE ASPIRIN AND PLAVIX WITH ANY INTERRUPTION FOR AT LEAST 6-12 MONTHS HIGH RISK FOR CLOT IN STENT /STENT FAILURE WITH NOT TAKING THIS BOTH ON REGULAR BASIS PLEASE TAKE WITH FOOD TO PREVENT STOMACH IRRITATION PLEASE NOTIFY YOUR PHYSICIAN WITH ANY EVIDENCE OF DARK STOOL OR BLOOD IN STOOL YOU WILL BENEFIT WITH CARDIAC REHAB PROGRAMME -REFERRAL BEEN MADE PLEASE DISCUSS WITH YOUR CARDIOLOGY FOR RECOMMENDATION Current Hospital Diet Patient's current hospital diet: AHA Diet (Heart Healthy) Discharge Diet Recommended Diet: AHA Diet (Heart Healthy) Procedures Procedures Performed: Coronary Angiography, Left Heart Cath ON 09/21/17 FINDING : 95% diagonal stenosis. 90% proximal RCA 1. Successful PCI of ostial/proximal RCA with 2 overlapping NAHUN (4.0 x 15, 4.5 x 15 [place]). 2. Successful PCI of proximal 1st diagonal with one NAHUN (2.5 x 15 [place]). Pending Studies Studies pending at discharge: no Work Instructions Return To Work: 3 days (on Sunday09/26/17 ) Medical Emergencies . Who to Call and When: Medical Emergencies: If at any time you feel your situation is an emergency, please call 911 immediately. Call 911 immediately or go to your nearest Emergency Room if you experience any of the following: Warning Signs and Symptoms of a Heart Attack * Chest pain that is not relieved by medication * Shortness of breath . Non-Emergent Contact Non-Emergency issues call your: Primary Care Provider . . "Provider Documentation" section prepared by Shagufta Chaparro. . AMI Core Measures Reason no ASA as I/P: Treatment provided - N/A Reason no ASA at D/C: Treatment provided - N/A Reason no statin as I/P: Treatment provided - N/A Reason no statin at D/C: Treatment provided - N/A VTE Core Measure Inpt VTE Proph given/why not?: Unfractionated heparin SQ Additional Copies To Cornel Lay, Pool Osorio M.D.
[2017-09-22 13:47] VITALS: BP 156/89; PULSE 82; TEMP 36.8; O2SAT 98
[2017-09-23] MEDS ORDERED: LISINOPRIL 5 MG TAB PO SCH (09:00)
== END 2017-09-22 15:13 | disposition home or self-care (01) | DRG 272 ==
LOC: EDBD 14:08 → C.EDC 14:09 → C.2E 16:34 → ENRESERV 17:19
PROVIDERS: ADMIT Family Medicine; ATTEND Hospitalist
PROC: 027 Heart and Great Vessels, Dilation (ICD-10-PCS; principal; 2017-09-21 16:39)
PROC: 4A023N7 Measurement of Cardiac Sampling and Pressure, Left Heart, Percutaneous Approach (ICD-10-PCS; principal; 2017-09-21 16:39)
PROC: B210YZZ Fluoroscopy of Single Coronary Artery using Other Contrast (ICD-10-PCS; principal; 2017-09-21 16:39)
DX: I21.4 Non-ST elevation (NSTEMI) myocardial infarction (principal); I25.10 Atherosclerotic heart disease of native coronary artery without angina pectoris; I24.9 Acute ischemic heart disease, unspecified; E78.5 Hyperlipidemia, unspecified; I10 Essential (primary) hypertension; I25.2 Old myocardial infarction; Z82.49 Family history of ischemic heart disease and other diseases of the circulatory system; Z87.891 Personal history of nicotine dependence; Z79.82 Long term (current) use of aspirin